=== PATIENT | female | born 1955 | race Caucasian/White ===

== ENCOUNTER 2021-05-19 11:17 | Emergency (ER) | payer BC, OTHER, SELFPAY | END 2021-05-19 13:07 | disposition home or self-care (01) | LOC: ERS 11:17 | DX: S09.90XA Unspecified injury of head, initial encounter (principal); W01.198A Fall on same level from slipping, tripping and stumbling with subsequent striking against other object, initial encounter; Z79.899 Other long term (current) drug therapy | CPT/HCPCS: 70450; 72125 ==